=== PATIENT | female | born 1985 | race Caucasian/White ===

== ENCOUNTER 2017-07-06 04:30 | Inpatient (IN) | payer OTHER ==
[2017-07-06] VITALS (25 sets, daily range): BP systolic 92–128; BP diastolic 53–89; PULSE 52–93; RESP 13–22; Ht 154.9 cm; Wt 72.5 kg
[~2017-07-06] VITALS: Ht 154.9 cm; Wt 72.5 kg
[2017-07-06] MEDS ORDERED: LACTATED RINGER'S 1,000 ML IV SCH (05:04)
[2017-07-06] MEDS ORDERED: AMPICILLIN 2 GM/NS (PMX) 100 ML ONE (05:11)
[2017-07-06] MEDS ORDERED: PREN1TAB79 PO (05:16)
--- NOTE | 2017-07-06 05:20 | TRIAGE ---
OB Triage Datetime Report Generated by CPN: 07/06/2017 05:20 Datetime: 07/06/2017 05:13 Vaginal Exam Dilatation (cms): 8.5 Effacement (%): 100 Station: -2 Exam By: DGS RN Membrane Status: Bulging Vaginal Bleeding: Normal Show Cervix, Consistency: Soft Cervix, Position: Midposition Datetime: 07/06/2017 05:09 Nausea/Vomiting: Present Datetime: 07/06/2017 05:02 Stage of : Labor Datetime: 07/06/2017 04:54 Vaginal Exam Dilatation (cms): 7.0 Effacement (%): 90 Station: -2 Exam By: NOEMI RN Membrane Status: Intact Vaginal Bleeding: None Cervix, Consistency: Soft Cervix, Position: Midposition Presentation 'A': Cephalic Datetime: 07/06/2017 04:51 Pain Assessment Pain Scale: 7 Pain Presence: Intermittent Pain Type: Contraction Pain Location: Abdomen Datetime: 07/06/2017 04:49 Stage of : OB Triage Assessment Type: Triage EGA: 39.5 Maternal Assessment Level of Consciousness: Fully Conscious Headache: Denies Blurred Vision: No Respiratory Effort: Unlabored; Regular Rhythm; Equal Expansion Nausea/Vomiting: Denies RUQ Epigastric Pain: Denies Facial Edema: None Fall Risk Assessment History of Falling: (0) No Secondary Diagnosis: (0) No Ambulatory Aid: (0) Bedrest/Nurse Assist IV Therapy: (0) No Gait: (0) Normal/Bedrest/Immobile Mental Status: (0) Oriented to Own Ability Fall Score: 0 Fall Risk Score Definition: No Risk: No action required Labor Evaluation Monitor Mode: Palpation Resting Tone [place]: Relaxed Heart Rate Monitor Mode: External US Datetime: 07/06/2017 04:46 Time of Arrival: 07/06/2017 04:30 Arrived By: Wheelchair Arrived From: Home Chief Complaint: UC'S SINCE 0130 Movement: Present Contractions: Regular Time Contractions Began: 07/06/2017 01:30 Contractions: Q5-10 Rupture of Membranes: Denies Vaginal Bleeding: None Vaginal Discharge: Present Recent Sexual Intercouse: Denies Abdominal Trauma: Not Applicable Patient Complaints: Contractions Time Provider Notified: 07/06/2017 04:58 Provider Notified: LUIS A Initial Plan: CLARA LEON, CALL OB
[2017-07-06] MEDS ORDERED: LIDOCAINE 1% (MPF) 30 ML INJ ONE (05:23)
[2017-07-06] MEDS ORDERED: OXYTOCIN 30 UNITS/LR 1,000 ML IV ONE (05:23)
[2017-07-06] MEDS ORDERED: MINERAL OIL LIGHT 10 ML VIAL ONE (05:23)
[2017-07-06] MEDS ORDERED: LACTATED RINGER'S 1,000 ML IV PRN (05:30)
[2017-07-06] MEDS ORDERED: METHYLERGONOVINE 0.2 MG INJ IM PRN ×2 (05:30→08:30)
[2017-07-06] MEDS ORDERED: MINERAL OIL LIGHT 10 ML VIAL TOP PRN (05:30)
[2017-07-06] MEDS ORDERED: LIDOCAINE 1% (MPF) 30 ML INJ INJ PRN (05:30)
[2017-07-06] MEDS ORDERED: BUTORPHANOL 2 MG INJ IV PRN (05:30)
[2017-07-06] MEDS ORDERED: IBUPROFEN 600 MG TAB PO PRN (05:30)
[2017-07-06] MEDS ORDERED: OXYTOCIN 30 UNITS/LR 500 ML IV SCH ×2 (05:30)
[2017-07-06] MEDS ORDERED: OXYTOCIN 30 UNITS/LR 500 ML IV PRN ×2 (05:30→08:30)
[2017-07-06] MEDS ORDERED: AMPICILLIN 2 GM/NS (PMX) 100 ML IV ONE (05:30)
[2017-07-06] MEDS ORDERED: OXYCODONE/ASPIRIN (4.88/325) TAB PO PRN ×3 (05:30→08:30)
[2017-07-06] MEDS ORDERED: CARBOPROST 250 MCG INJ IM PRN ×2 (05:30→08:30)
[2017-07-06] MEDS ORDERED: MISOPROSTOL 200 MCG TAB PR PRN ×2 (05:30→08:30)
[2017-07-06 05:59] LABS: BASOPHILS % 0.2 % (0.0-2.0); EOSINOPHILS % 0.1 % (0.0-7.0); HEMATOCRIT 41.1 % (37.0-47.0); HEMOGLOBIN 13.5 g/dl (12.0-16.0); LYMPHOCYTES # 0.9 10^3/ul (0.8-2.9); LYMPHOCYTES % 8.9 % (15.0-51.0); MEAN CORPUSCULAR HEMOGLOBIN 31.3 pg (29.0-33.0); MEAN CORPUSCULAR HGB CONC 32.8 g/dl (32.0-37.0); MEAN CORPUSCULAR VOLUME 95.1 fl (82.0-101.0); MEAN PLATELET VOLUME 11.6 fl (7.4-10.4); MONOCYTE # 0.5 10^3/ul (0.3-0.9); MONOCYTES % 4.5 % (0.0-11.0); NEUTROPHIL # 9.1 10^3/ul (1.6-7.5); NEUTROPHILS % 85.8 % (39.0-77.0); PLATELET COUNT 154 10^3/UL (140-415); RED BLOOD COUNT 4.32 10^6/ul (4.20-5.40); WHITE BLOOD COUNT 10.6 10^3/ul (4.8-10.8)
[2017-07-06 06:16] LABS: INR 0.91; PARTIAL THROMBOPLASTIN TIME 27.3 Sec (25.0-35.0); PROTIME 12.3 Sec (12.2-14.2)
--- NOTE | 2017-07-06 06:23 | HP ---
Date/Time of Note Date/Time of Note DATE: 07/06/17 TIME: 06:18 OB - History Hx of Present Free Text/Dictation 31 y,o at 39w5d in active labor with intact membrane. initial VE 7cm 90% -2 tracing cat I aadmitted for expectant management. Chief Complaint: in labor Estimated Due Date: Jul 08, 2017 : 2 Para: 1 Spontaneous : 0 Therapeutic : 0 Care: Good Care Ultrasounds: Normal mid trimester US Obstetrical Complications: None Medical Complications: None Past Family/Social History * Past Medical, Surgical, Family and Obstetric Histories reviewed from chart. Blood Type: O+ Rubella: not immune RPR/VDRL: Negative GBS Status: Unknown HBsAG: Negative OB Admission Exam Physical Exam HEENT: WNL Heart: Rhythm Normal Lungs: Clear, Equal Abdomen: WNL Extremities: Normal Reflexes: Normal Cervical Dilatation: 7cm Station: -2 (90%) Membranes: Intact Amniotic Fluid: Unevaluable Heart Rate: 140's Accelerations: Accelerations Present Decelerations: No Decelerations Varibility: Moderate Contractions on Admission: < 5 Minutes Apart Intensity: Moderate Last 72 hours Lab Results CBC & BMP 07/06/17 05:25 OB Assessment/Plan Reason for admission: active labor Plan: Expectant Management GEOVANY GUNN MD Jul 06, 2017 06:23
--- NOTE | 2017-07-06 06:26 | LDN ---
Date/Time of Note Date/Time of Note DATE: 07/06/17 TIME: 06:23 Delivery Summary normal vaginal delivery Weeks of Gestation 39w5d Placenta Delivered: Spontaneously Meconium: none Episiotomy: No Perineal laceration: 1 Laceration repair: 0000ch with Anesthesia type: None Estimated blood loss: 100 Sponge & Needle done & correct: Yes All needle counts correct: Yes Any foreign bodies felt in the: No Problems: Delivery Information Sex Sex: female Apgars 1 Minute: 8 5 Minute: 9 Suctioning Nose & mouth suctioned at tata: Yes Delee suction performed: No Umbilical Cord Umbilical cord with: 3 Vessels Cord presentations: nuchal cord Nuchal cord present X: 1 Cord Blood was obtained: Yes Mother & Baby Disposition Disposition Mom & Baby to Maternity; Good: Yes Mom transferred to: Other () Baby to NICU: No GEOVANY GUNN MD Jul 06, 2017 06:26
[2017-07-06] MEDS ORDERED: BENZOCAINE 20% 56 ML SPRAY TOP PRN (08:30)
[2017-07-06] MEDS ORDERED: WITCH HAZEL/GLYCERIN PAD PR PRN (08:30)
[2017-07-06] MEDS ORDERED: LANOLIN 7 GM TUBE TOP PRN (08:30)
[2017-07-06] MEDS ORDERED: ZOLPIDEM 5 MG TAB PO PRN (08:30)
[2017-07-06] MEDS: SENNA/DOCUSATE NA (8.6MG/50MG) TAB PO SCH ×2 (09:00→20:57)
[2017-07-06] MEDS ORDERED: AMPICILLIN 1 GM/NS (PMX) 50 ML IV SCH (09:30)
--- NOTE | 2017-07-06 11:21 | DELSUM ---
Delivery Summary A-C Datetime Report Generated by CPN: 07/06/2017 11:21 DELIVERY PERSONNEL Tube Inspector: Jackson, Divine MATERNAL INFORMATION Delivery Anesthesia: None Medications in Delivery: LR W/ 30 UNITS OF PITOCIN Estimated Blood Loss (ml): 110 Placenta Cultured: No Maternal Complications: None RN Comments: CAME IN LABOR LABOR SUMMARY EDC: 07/08/2017 00:00 No. Babies in Womb: 1 Attempted: No Labor Anesthesia: None LABOR INFORMATION Reason for Induction: Not Applicable Onset of Labor: 07/06/2017 01:30 Complete Dilatation: 07/06/2017 05:50 Oxytocin: N/A Group B Beta Strep: Done, Result Unknown Antibiotics # of Doses: 1 Antibiotics Time of Last Dose: 07/06/2017 05:31 Steroids Given: None Reason Steroids Not Administered: Not Applicable MEMBRANES Membranes Rupture Method: Artificial Membranes Rupture Method: Artificial Rupture of Membranes: 07/06/2017 05:52 Length of Rupture (hr): 0.07 Amniotic Fluid Color: Clear Amniotic Fluid Color: Clear Amniotic Fluid Amount: Large Amniotic Fluid Amount: Large Amniotic Fluid Odor: None Amniotic Fluid Odor: None STAGES OF LABOR Stage 1 hr: 4 Stage 1 min: 20 Stage 2 hr: 0 Stage 2 min: 6 Stage 3 hr: 0 Stage 3 min: 5 Total Time in Labor hr: 4 Total Time in Labor min: 31 VAGINAL DELIVERY Episiotomy: None Laceration Extension: First Degree Laceration Type: Perineal Laceration Repair: Yes Initial Vag Sponge Count: 10 Final Vag Sponge Count: 10 Initial Vag Sharps Count: 1 Final Vag Sharps Count: 3 Sponge Count Correct: Yes Sharps Count Correct: Yes Count Comment: MD REQUESTED +2 SHARPS, TOTAL OF 3 SHARPS AT END OF DELIVERY BABY A INFORMATION Infant Delivery Date/Time: 07/06/2017 05:56 Method of Delivery: Vaginal Born in Route : No : N/A Forceps: N/A Vacuum Extraction: N/A Shoulder Dystocia : N/A SHOULDER DYSTOCIA BABY A Infant Delivery Date/Time: 07/06/2017 05:56 PRESENTATION/POSITION BABY A Presentation: Cephalic Presentation: Cephalic Cephalic Presentation: Vertex Vertex Position: Left Occipital Anterior Breech Presentation: N/A PLACENTA INFORMATION BABY A Placenta Delivery Time : 07/06/2017 06:01 Placenta Method of Delivery: Spontaneous Placenta Status: Delivered SCORES BABY A Heart Rate 1 min: >100 bpm Resp Effort 1 min: Good Cry Reflex Irritability 1 min: Cough/Sneeze/Pulls Away Muscle Tone 1 min: Active Motion Color 1 min: Blue/Pale Resuscitation Effort 1 min: Tactile Stimulation SCORE 1 MIN: 8 Heart Rate 5 min: >100 bpm Resp Effort 5 min: Good Cry Reflex Irritability 5 min: Cough/Sneeze/Pulls Away Muscle Tone 5 min: Active Motion Color 5 min: Body Napoleon, Extremit Blue Resuscitation Effort 5 min: Tactile Stimulation SCORE 5 MIN: 9 INFANT INFORMATION BABY A Gestational Age at Delivery: 39.5 Gestational Status: Full Term- 39- 40.6 Weeks Infant Outcome : Liveborn Infant Condition : Stable Infant Sex: Female IDENTIFICATION/MEDS BABY A ID Band Number: [id number] ID Band Location: Right Leg; Left Arm Sensor Applied: Yes Sensor Number: [id number] Sensor Location : Cord Clamp Vitamin K Given : Not Given Erythromycin Given: Not Given WEIGHT/LENGTH BABY A Infant Birthweight (gm): 3800 Weight (lb): 8 Infant Weight (oz): 6 Infant Length (in): 19.75 Infant Length (cm): 50.17 CORD INFORMATION BABY A No. Cord Vessels: 3 Nuchal Cord : Around Neck x1, Tight Cord Blood Taken: Yes Infant Suction: Mouth; Nose ASSESSMENT BABY A Infant Complications: None Physical Findings at Delivery: Bruising; Within Normal Limits Physical Findings- Other: stool x1, facial bruising Respirations: Appears Normal Agricultural Engineering Teacher/ALS Called : No Infant Care By: CLINTON Livingston RN Transferred To: Remains with Mother
[2017-07-06] MEDS: LACTATED RINGER'S 1,000 ML IV SCH ×2 (12:00→18:04)
[2017-07-06] MEDS: IBUPROFEN 600 MG TAB PO SCH ×2 (12:00→17:48)
[2017-07-06] MEDS ORDERED: OXYTOCIN 10 UNIT INJ ONE (13:49)
[2017-07-06] MEDS ORDERED: METOCLOPRAMIDE 10 MG INJ ONE (14:02)
[2017-07-06] MEDS ORDERED: ONDANSETRON 4 MG INJ ONE (14:02)
[2017-07-06] MEDS ORDERED: MEPERIDINE 25 MG INJ IV PRN (14:30)
[2017-07-06] MEDS ORDERED: FENTAnyl 50 MCG/ML VIAL IV PRN (14:30)
[2017-07-06] MEDS ORDERED: DIPHENHYDRAMINE 50 MG INJ IV PRN (14:30)
[2017-07-06] MEDS ORDERED: EPHEDrine SULFATE 50 MG/5 ML SYG IV PRN (14:30)
[2017-07-06] MEDS ORDERED: ONDANSETRON 4 MG INJ IV PRN (14:30)
--- NOTE | 2017-07-06 14:34 | SIPON ---
Date/Time of Note Date/Time of Note DATE: 07/06/17 TIME: 14:32 Operative Report Preoperative Diagnosis status postpaartum desire to have voluntary tubal sterilization Postoperative Diagnosis same Operation/Procedure Performed bilaeral tubal ligation Surgeon see signature line assistant professor of religion none Anesthesia: spinal Estimated blood loss: 0 - 10 ml's Transfusion Required none Specimen portions of bilateral follopian tubes Grafts/Implants none Complications none GEOVANY GUNN MD Jul 06, 2017 14:34
[2017-07-06] MEDS: FENTAnyl 50 MCG/ML VIAL IV PRN ×2 (15:13→16:09)
[2017-07-06] MEDS ORDERED: INFLUENZA VIRUS VACCINE 0.5 ML (DISPENSING) IM* ONE (18:00)
[2017-07-07] MEDS: IBUPROFEN 600 MG TAB PO SCH ×4 (00:07→17:18)
[2017-07-07 00:20] VITALS: BP 118/80; PULSE 70; RESP 18
[2017-07-07 04:00] VITALS: BP 112/68; PULSE 66; RESP 17
[2017-07-07 08:00] VITALS: BP 105/55; PULSE 73; RESP 18
[2017-07-07] MEDS: SENNA/DOCUSATE NA (8.6MG/50MG) TAB PO SCH ×2 (09:01→21:18)
[2017-07-07 09:09] LABS: BASOPHILS % 0.1 % (0.0-2.0); EOSINOPHILS % 0.4 % (0.0-7.0); HEMOGLOBIN 12.3 g/dl (12.0-16.0); LYMPHOCYTES # 1.2 10^3/ul (0.8-2.9); LYMPHOCYTES % 12.8 % (15.0-51.0); MEAN CORPUSCULAR HEMOGLOBIN 31.7 pg (29.0-33.0); MEAN CORPUSCULAR HGB CONC 32.4 g/dl (32.0-37.0); MEAN CORPUSCULAR VOLUME 97.9 fl (82.0-101.0); MEAN PLATELET VOLUME 11.2 fl (7.4-10.4); MONOCYTE # 0.5 10^3/ul (0.3-0.9); MONOCYTES % 5.1 % (0.0-11.0); NEUTROPHIL # 7.6 10^3/ul (1.6-7.5); NEUTROPHILS % 81.2 % (39.0-77.0); PLATELET COUNT 129 10^3/UL (140-415); RED BLOOD COUNT 3.88 10^6/ul (4.20-5.40); RED CELL DISTRIBUTION WIDTH 13.5 % (11.5-14.5); WHITE BLOOD COUNT 9.3 10^3/ul (4.8-10.8)
[2017-07-07 09:10] LABS: POSITIVE DIFF @See below
[2017-07-07 10:40] LABS: ANISOCYTOSIS 1+ (0-0); EOSINOPHILS % (M) 1 % (0-7); MICROCYTOSIS 1+ (0-0); MONOCYTES % (M) 3 % (0-11); PLATELET ESTIMATE DECREASED; POLYCHROMASIA 1+ (0-0)
--- NOTE | 2017-07-07 15:39 | PN ---
Date/Time of Note Date/Time of Note DATE: 07/07/17 TIME: 15:24 OB Subjective Subjective Subjective no c/o OB Objective Objective Objective vss afebrile fundus firm abdomen soft wound from tubal ligation dry lochia min calf neg for tenderness OB Assessment/Plan Other Assessment: stable s/p vaginal delivery and PPTL Other plan: d/s home in am GEOVANY GUNN MD Jul 07, 2017 15:35
[2017-07-07 16:00] VITALS: BP 96/61; PULSE 68; RESP 18
--- NOTE | 2017-07-07 20:07 | OPR ---
DATE OF OPERATION: 07/06/2017 PREOPERATIVE DIAGNOSIS: Status , desire for voluntary tubal sterilization. POSTOPERATIVE DIAGNOSIS: Status , desire for voluntary tubal sterilization. OPERATION PERFORMED: bilateral partial salpingectomy. ANESTHESIA: Spinal. ANESTHESIOLOGIST: Dr. Palafox SURGEON: Dorothea Yeung MD ESTIMATED BLOOD LOSS: Minimal, not even 10 mL. PROCEDURE: Under proper induction of spinal anesthesia, the patient was placed in the frog position , Cox catheter was introduced into the bladder under sterile condition and repositioned to supine. Abdominal wall was prepped and draped in usual aseptic manner. A transverse incision was made, padilla bumbilical lesion. The incision was carried down through the subcutaneous tissue to the fascia to t he peritoneum, which was opened. The patient was placed in the Trendelenburg position. The right f allopian tube was brought out through with the fingers and the tubal structure was identified, which was grasped with a Everetts forceps and the avascular area in the mesosalpinx, created loop of tube. This loop of tube was doubly ligated with 0 plain. The loop of tube was excised. No bleeder was noted. Same procedure was done on the contralateral tube and no bleeder was noted. The procedure c ompleted and the peritoneum was closed with 2-0 Vicryl in pursestring manner. Fascia was closed wit h 2-0 Vicryl in continuous manner. Subcutaneous tissue closed with 3-0 Monocryl, which was continue d to use a subcuticular suture on the skin. No bleeder was noted. Pressure dressing applied. Carol mated blood loss less than 10 mL. The patient withstood the procedure well and was sent to recovery room in stable condition. Sponge count and needle count, instrument count correct. Dictated By: DOROTHEA KWOK/KAMERON Conf#: [id number] DID#: [id number]
[2017-07-07 20:45] VITALS: BP 124/74; PULSE 69; RESP 16
[2017-07-08] MEDS: IBUPROFEN 600 MG TAB PO SCH ×3 (00:02→11:31)
[2017-07-08 04:30] VITALS: BP 99/58; PULSE 60; RESP 16
[2017-07-08 08:00] VITALS: BP 113/79; PULSE 62; RESP 17
--- NOTE | 2017-07-08 08:56 | PD.PPDC ---
CALL CENTER SPECIALIST Discharge Instruction Diagnosis Final Diagnosis: s/p normal vaginal delivery BTL Condition Patient Condition: Stable Diet Diet: Resume Regular Diet Activity/Restrictions Activity: May Shower Restrictions: No Lifting No Sexual Activity Nothing in the Vagina No Murillo No Tampons, douche Follow-up Follow-up with Physician: 2, Week/Weeks Return to clinic for [facility] Instructions: Fever greater than 101 Chills Worsening abdominal pain Excessive Vaginal Bleeding More than 2 pads per hour Unable to tolerate diet Surgical Instructions: Incisional Drainage Incisional Redness GEOVANY GUNN MD Jul 08, 2017 08:56
[2017-07-08] MEDS ORDERED: DIPHTH/TET/ACEL PERTUSS (ADULT) 0.5 ML VIAL IM* ONE (09:00)
--- NOTE | 2017-07-08 09:15 | DS ---
Date/Time of Note Date/Time of Note DATE: 07/08/17 TIME: 09:14 Obstetrical Discharge Record Final Diagnosis Final Diagnosis: Term delivered Vaginal Delivery Obstetrical Delivery: Spontaneous, Bilateral Tubal Ligation Complications Augmentation: No Induction: No Rupture of Membranes: No Condition on Discharge Physical Assessment Last Vitals: vss afebrile Voiding: Yes Bowel Movement: Yes Breast: Soft, non-tender Fundus: Firm Abdomen and Incision: wound healing properly Episiotomy: none Calf Tenderness: No Patient Condition: Stable GEOVANY GUNN MD Jul 08, 2017 09:15
[2017-07-08] MEDS: SENNA/DOCUSATE NA (8.6MG/50MG) TAB PO SCH (10:00)
== END 2017-07-08 12:20 | disposition home or self-care (01) | DRG 767 ==
LOC: L-D 04:30 → OBT 04:30 → L-D 04:55 → OBT 04:55 → PP1 08:45
PROVIDERS: ADMIT Obstetrics & Gynecology; ATTEND Obstetrics & Gynecology
PROC: 0UB70ZZ Excision of Bilateral Fallopian Tubes, Open Approach (ICD-10-PCS; 2017-07-06)
PROC: 0HQ9XZZ Repair Perineum Skin, External Approach (ICD-10-PCS; 2017-07-06)
PROC: 10E0XZZ Delivery of Products of Conception, External Approach (ICD-10-PCS; principal; 2017-07-06 14:00)
DX: O70.0 First degree perineal laceration during delivery (principal); Z37.0 Single live birth; O69.81X0 Labor and delivery complicated by cord around neck, without compression, not applicable or unspecified; Z3A.39 39 weeks gestation of pregnancy; Z30.2 Encounter for sterilization
CPT/HCPCS: 85025; 85610; 85730; 86592; 86900; 86901; 87086; 87340; 88302; 90686; 90715; G0463; J0290; J2405; J2590; J2765; J3010; J7120